=== PATIENT | male | born 1950 | race Asian ===

== ENCOUNTER 2017-10-29 13:59 | Outpatient (CLI) | payer MEDICARE ==
--- NOTE | 2017-10-29 15:22 | ULT ---
ULTRASOUND THYROID: DATE: 10-29-17 History: Follow up thyroid nodule in 66-year-old male. Comparison: Thyroid ultrasounds of 04-25-15, 10-09-15, 10-07-16. FINDINGS: Isthmus: 0.2 cm anteroposterior Right lobe: 1.5 x 4.6 x 1.6 cm Left lobe: 1.2 x 3.5 x 0.8 cm In the mid-pole of the right lobe, there is an approximately 1.3 x 1 x 1.3 cm smoothly well circumscr ibed solid nodule with no lobulations. It is wider than tall. It is predominantly isoechoic to thyroi d parenchyma, but contains small irregular internal hypoechoic areas. The business specialist has measured a hypoechoic halo around this mass, that was included in the measurements of this nodule, which would b e 1.5 x 1.6 x 1.5 cm. Upon review of previous ultrasound images, there has been no interval change si nce 04-25-15. The report of 10-07-16 that mentioned interval increase in size included the outer hypoec hoic halo. In fact, the nodule had not changed in size between 10-09-15 and 10-07-16. A tiny solid nodule in the left lobe of the thyroid gland was reported on 04-25-15 and 10-09-15. That n odule is not visible on the current ultrasound. It is uncertain whether that was a true nodule or art ifact due to slight heterogeneity of the echogenicity of the left upper pole thyroid parenchyma. Over all, otherwise, there has been no significant interval change. IMPRESSION: The solid right thyroid nodule has not changed since 04-25-15. POS: [facility]
== END 2017-10-29 14:00 | disposition home or self-care (01) ==
LOC: ULT 13:59
PROVIDERS: ATTEND Specialist
DX: E04.1 Nontoxic single thyroid nodule (principal)
CPT/HCPCS: 76536

== ENCOUNTER 2019-06-19 12:36 | Outpatient (CLI) | payer MEDICARE ==
--- NOTE | 2019-06-19 13:29 | ULT ---
THYROID ULTRASOUND INDICATION: Multinodular goiter TECHNIQUE: Grayscale and color Doppler images were obtained of the thyroid gland. COMPARISON: Prior thyroid ultrasound dated October 29, 2017 FINDINGS: Right thyroid lobe: The right thyroid lobe measures 4.9 x 1.5 x 1.5 cm. The well-circumscribed solid nodule involving the right mid thyroid lobe measures 1.5 x 1 x 1.3 cm. This is stable to the prior exam. Thyroid isthmus: The thyroid isthmus measures 0.30 cm. Left thyroid lobe: The left thyroid lobe measures 4.0 x 0.7 x 1.3 cm. IMPRESSION: 1. Stable solid nodule involving the right thyroid lobe.
== END 2019-06-19 12:37 | disposition home or self-care (01) ==
LOC: BICULT 12:36
PROVIDERS: ATTEND Family Medicine
DX: E04.2 Nontoxic multinodular goiter (principal)
CPT/HCPCS: 76536

== ENCOUNTER 2019-08-28 11:49 | Outpatient (CLI) | payer MEDICARE ==
--- NOTE | 2019-08-28 12:05 | RAD ---
Right knee 4 views HISTORY: Knee pain. FINDINGS: Joint spaces are preserved. Moderate tricompartmental osteophytosis. No acute fracture, dis location, or fluid distention of the joint capsule evident. 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 No acute osseous abnormalities are demonstrated.
== END 2019-08-28 11:50 | disposition home or self-care (01) ==
LOC: SCSRAD 11:49
PROVIDERS: ATTEND Family Medicine
DX: M25.561 Pain in right knee (principal); M17.11 Unilateral primary osteoarthritis, right knee

== ENCOUNTER 2025-03-07 10:14 | Outpatient (CLI) | payer MEDICARE, OTHER | END 2025-03-07 10:15 | disposition home or self-care (01) | LOC: SCSRAD 10:14 | PROVIDERS: ATTEND Family Medicine | DX: M53.3 Sacrococcygeal disorders, not elsewhere classified (principal); W19.XXXA Unspecified fall, initial encounter | CPT/HCPCS: 72220 ==